=== PATIENT | female | born 1960 | race African-American/Black ===

== ENCOUNTER 2019-03-02 09:51 | Observation (INO) | payer SELFPAY ==
--- NOTE | 2019-03-02 10:59 | RAD ---
EXAM: Chest one view: HISTORY: Chest pain COMPARISON: None FINDINGS: Heart size: Within normal limits. Lungs: Clear of acute process. No evidence for pneumonia, pleural effusion, acute edema, or pneumothorax, or other significant acute process. IMPRESSION: No significant acute intrathoracic disease. Minimal atherosclerosis of the aorta. Small right C7 cervical rib.
[2019-03-02 11:01] LABS: #Basophils 0.1 thou/uL (0.0-0.2); #Eosinphils 0.1 thou/uL (0.0-0.7); #Lymphocytes 2.6 thou/uL (1.20-3.40); #Monocytes 0.6 thou/uL (0.11-0.59); #Neutrophils 2.8 thou/uL (1.40-6.50); %Eosinophils 1.2 % (0.0-10.0); %Lymphocytes 42.3 % (21.0-51.0); %Monocytes 9.2 % (0.0-10.0); %Neutrophils 46.3 % (42.0-75.0); Hemoglobin 11.5 g/dL (12.0-16.0); Mean Platelet Volume 6.3 fL (7.4-10.4); Platelet Count 329 thou/uL (130-400); RBC Distribution Width 11.7 % (11.5-14.5); Red Blood Cell (RBC) Count 3.59 mill/uL (4.20-5.40); White Blood Cell (WBC) Count 6.1 thou/uL (4.8-10.8)
[2019-03-02 11:26] LABS: ALT (SGPT) 15 U/L (8-55); AST (SGOT) 19 U/L (5-34); Alkaline Phosphatase 84 U/L (40-110); Anion Gap 12 mmol/L (10-20); BUN (Urea Nitrogen) 12 mg/dL (9.8-20.1); Bilirubin, Total 0.3 mg/dL (0.2-1.2); Calc. Creatinine Clearance 0 mL/min (70-130); Calcium 9.2 mg/dL (7.8-10.44); Carbon Dioxide 23 mmol/L (22-29); Chloride 106 mmol/L (98-107); Estimated GFR-MDRD 61; Globulin 2.8 g/dL (2.4-3.5); Glucose 102 mg/dL (70-105); Lipase 21 U/L (8-78); Protein, Total 6.8 g/dL (6.0-8.3); Sodium 137 mmol/L (136-145)
[2019-03-02] MEDS ORDERED: Ondansetron ODT 4 MG TAB PO PRN (14:11)
[2019-03-02] MEDS ORDERED: Ondansetron PF 4 MG/2 ML Vial IVP PRN (14:11)
--- NOTE | 2019-03-02 14:33 | PDOC.HHP ---
Hospitalist HPI - History of Present Illness Chest pain on exertion History of Present Illness: Ms. Fink is a pleasant 58 yo woman presenting with exertional chest pain which has been intermittent for the last 5-7 days. States it doesnt happen every single time but it has been gradually worsening. She had another episode of pain this morning at approximately 8:30am and states it was in the center of her chest, non-radiating and at a level of 8/10 in severity lasting a few minutes. She has noted the pain radiates to her left shoulder at times, but this did not happen today. Reports being on nitroglycerin previously but never had to use it. Also reports having a history of hypertension in the past when her son and never did continue with medications or follow-up. ED Course: Patient reports taking aspirin before attending ED. Has had an EKG in the ER showing NSR, HR [address] changes. Nonspecific T wave abnormality noted. CXR showed minimal atherosclerosis of the aorta, otherwise unremarkable. Initial troponin normal. Hospitalist ROS - Review of Systems Constitutional: denies: fever, chills, sweats, weakness, malaise, other Eyes: denies: pain, vision change, conjunctivae inflammation, eyelid inflammation, redness, other ENT: denies: ear pain, ear discharge, nose pain, nose discharge, nose congestion , mouth pain, mouth swelling, throat pain, throat swelling, other Respiratory: denies: cough, dry, shortness of breath, hemoptysis, SOB with excertion, pleuritic pain, sputum, wheezing, other Cardiovascular: reports: chest pain. denies: palpitations, orthopnea, paroxysmal noc. dyspnea, edema, light headedness, other Gastrointestinal: reports: constipation (chronic). denies: nausea, vomiting, abdominal pain, diarrhea, melena, hematochezia, other Genitourinary: denies: dysuria, frequency, incontinence, hematuria, retention, other Musculoskeletal: reports: shoulder pain (radiating from chest pain on occasion) . 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 Gastrointestinal: reports: no pertinent history Heme/Onc: reports: no pertinent history Hepatobiliary: reports: no pertinent history Psych: reports: Anxiety, Depression Musculoskeletal: reports: no pertinent history Rheumatologic: reports: no pertinent history Infectious Disease: reports: no pertinent history ENT: reports: no pertinent history Renal/: reports: no pertinent history Endocrine: reports: no pertinent history Dermatology: reports: no pertinent history - Past Surgical History Past Surgical History: reports: - Family History Family History: reports: no pertinent history - Social History Smoking Status: Former smoker Alcohol: reports: None Drugs: reports: none Living Situation: Other (Lives at [facility]) Activity level: independent ambulation - Exam General Appearance: NAD, awake alert Eye: PERRL, anicteric sclera ENT: normocephalic atraumatic, no oropharyngeal lesions, moist mucosa Neck: supple, no lymphadenopathy Heart: RRR, no murmur, no gallops, normal peripheral pulses Respiratory: CTAB, no wheezes, no rales, no ronchi, normal chest expansion, no tachypnea Gastrointestinal: soft, non-tender, non-distended, normal bowel sounds, no palpable masses, no hepatomegaly, no splenomegaly Extremities: no edema Skin: normal turgor, no lesions, no rashes Neurological: cranial nerve grossly intact, normal sensation to touch, no weakness, no focal deficits Musculoskeletal: normal tone, normal strength, no muscle wasting Psychiatric: normal affect, normal behavior, A&O x 3 Hospitalist Results - Labs Result Diagrams: 03/02/19 10:46 03/02/19 10:46 Lab results: WBC 6.1 thou/uL (4.8-10.8) 03/02/19 10:46 Hgb 11.5 g/dL (12.0-16.0) L 03/02/19 10:46 Hct 33.8 % (36.0-47.0) L 03/02/19 10:46 MCV 94.0 fL (78.0-98.0) 03/02/19 10:46 Plt Count 329 thou/uL (130-400) 03/02/19 10:46 Neutrophils % 46.3 % (42.0-75.0) 03/02/19 10:46 Sodium 137 mmol/L (136-145) 03/02/19 10:46 Potassium 4.0 mmol/L (3.5-5.1) 03/02/19 10:46 Chloride 106 mmol/L (98-107) 03/02/19 10:46 Carbon Dioxide 23 mmol/L (22-29) 03/02/19 10:46 BUN 12 mg/dL (9.8-20.1) 03/02/19 10:46 Creatinine 0.93 mg/dL (0.6-1.1) 03/02/19 10:46 Glucose 102 mg/dL (70-105) 03/02/19 10:46 Calcium 9.2 mg/dL (7.8-10.44) 03/02/19 10:46 Total Bilirubin 0.3 mg/dL (0.2-1.2) 03/02/19 10:46 AST 19 U/L (5-34) 03/02/19 10:46 ALT 15 U/L (8-55) 03/02/19 10:46 Alkaline Phosphatase 84 U/L (40-110) 03/02/19 10:46 Troponin I Less than 0.010 ng/mL (< 0.028) 03/02/19 10:46 Serum Total Protein 6.8 g/dL (6.0-8.3) 03/02/19 10:46 Albumin 4.0 g/dL (3.5-5.0) 03/02/19 10:46 Lipase 21 U/L (8-78) 03/02/19 10:46 - Radiology Interpretation Chest x-ray Status: report reviewed by al Hospitalist H&P A/P - Problem (1) Chest pain on exertion Code(s): R07.9 - CHEST PAIN, UNSPECIFIED Status: Acute (2) History of hypertension Code(s): Z86.79 - PERSONAL HISTORY OF OTHER DISEASES OF THE CIRCULATORY SYSTEM Status: Chronic (3) Anxiety with depression Code(s): F41.8 - OTHER SPECIFIED ANXIETY DISORDERS Status: Chronic - Plan Plan: Continue to trend troponins and continous cardiac monitoring. Will add d-dimer as well as Mg+. UA/UDS. Monitor BP. Lipid panel with morning labs and TSH. Stress test requested, will need to be NPO at midnight. Resume home medications for depression/anxiety once verified. CODE STATUS: FULL Surrogate decision maker is her daughter Juli Sheridan. Case reviewed by Dr. Caldwell.
[2019-03-02 14:54] LABS: Troponin I Less than 0.010 ng/mL (< 0.028)
[2019-03-02 16:23] LABS: Troponin I Less than 0.010 ng/mL (< 0.028)
[2019-03-02] MEDS: Sodium Chloride 0.9% 1,000 ML IV SCH ×2 (16:26→16:54)
[2019-03-02 16:38] VITALS: BMI 34.5
[2019-03-02] MEDS: Famotidine 20 MG TAB PO SCH (20:41)
[2019-03-03 05:43] LABS: #Basophils 0.1 thou/uL (0.0-0.2); #Eosinphils 0.1 thou/uL (0.0-0.7); #Lymphocytes 2.4 thou/uL (1.20-3.40); #Monocytes 0.4 thou/uL (0.11-0.59); %Basophils 1.1 % (0.0-1.0); %Eosinophils 1.7 % (0.0-10.0); %Lymphocytes 48.4 % (21.0-51.0); %Monocytes 8.9 % (0.0-10.0); Mean Corpuscular HGB CONC 35.3 g/dL (32.0-36.0); Mean Corpuscular Hemoglobin 32.7 pg (27.0-31.0); Mean Corpuscular Volume 92.7 fL (78.0-98.0); Mean Platelet Volume 5.8 fL (7.4-10.4); Platelet Count 295 thou/uL (130-400); RBC Distribution Width 11.7 % (11.5-14.5); Red Blood Cell (RBC) Count 3.35 mill/uL (4.20-5.40)
[2019-03-03 06:08] LABS: Anion Gap 10 mmol/L (10-20); BUN (Urea Nitrogen) 14 mg/dL (9.8-20.1); Calc. Creatinine Clearance 95 mL/min (70-130); Calcium 8.8 mg/dL (7.8-10.44); Carbon Dioxide 23 mmol/L (22-29); Cardiac Risk 3.1 (Less than 4.5); Chloride 107 mmol/L (98-107); Cholesterol 183 mg/dl (< 200 Desired); Estimated GFR-MDRD 79; Glucose 97 mg/dL (70-105); HDL Cholesterol 59 mg/dL (>60 Neg Risk); LDL Cholesterol, Calculated 102 mg/dL; Sodium 136 mmol/L (136-145); Triglycerides 112 mg/dL (Less than 150)
[2019-03-03] MEDS: Sodium Chloride 0.9% 1,000 ML IV SCH (06:09)
[2019-03-03] MEDS: Famotidine 20 MG TAB PO SCH (08:30)
[2019-03-03] MEDS ORDERED: Citalopram 20 MG TAB PO SCH (09:00)
--- NOTE | 2019-03-03 13:57 | NM ---
MYOCARDIAL PERFUSION SCAN WITH SPECT IMAGING: HISTORY: Chest pain. TECHNIQUE: Examination is performed as a two day study using 31.9 millicuries of 99m technetium sestamibi on the stress and 29.3 millicuries on the resting images. FINDINGS: This shows a fairly normal distribution of radiopharmaceutical without signs for ischemia or scar. Wall motion: There is symmetric contractility of the ventricle. Left ventricular ejection fraction: The calculated left ventricular ejection fraction is 52%. IMPRESSION: 1. No evidence of ischemic change. 2. Left ventricular ejection fraction is calculated at 52%. Correlate with echocardiogram. POS: [facility]
[2019-03-03] MEDS ORDERED: ADENOSINE 60 MG/20 ML VIAL ONE (14:15)
[2019-03-03] MEDS ORDERED: metroNIDAZOLE 500 MG TAB PO SCH (14:30)
[2019-03-03 16:17] VITALS: BP 145/70; TEMP 98.5
--- NOTE | 2019-03-04 13:47 | DIS ---
DATE OF ADMISSION: 03/02/2019 DATE OF DISCHARGE: 03/03/2019 DISCHARGE DIAGNOSES: 1. Chest pain. 2. Hypertension. 3. Anxiety with depression. HISTORY OF PRESENT ILLNESS: This patient is a 58-year-old female, who presented with a 5 to 7 day history of exertional chest pain. She had a negative evaluation in the emergency department. She was placed in observation status on telemetry. Vital signs remained stable. Her labs were notable for troponins that were less than 0.01, negative. She had a normal TSH, cholesterol panel with LDL of 102, HDL 59, and triglycerides 112. The patient subsequently underwent a stress test. Stress test was unremarkable for ischemia. EF was documented at 52% and correlation with echo was recommended. Echocardiogram was performed and EF was estimated at 55% to 60% with otherwise structurally normal and functionally normal. With that the patient was felt to be stable for discharge to home. PHYSICAL EXAMINATION: VITAL SIGNS: On the day of discharge, temperature 98.5, pulse 77, respirations 16, O2 saturation 98% on room air, BP is 145/70. GENERAL: She is awake, alert, oriented. HEART: Regular rate and rhythm without murmurs, gallops, or rubs. LUNGS: Clear to auscultation bilaterally. Good chest wall expansion and air exchange. ABDOMEN: Soft, nontender, and nondistended. EXTREMITIES: No cyanosis, clubbing, or edema. DISPOSITION: The patient is discharged to home in stable condition. DISCHARGE MEDICATIONS: Include omeprazole 20 mg daily. She will continue with; 1. Citalopram. 2. Quetiapine. 3. Hydroxyzine. FOLLOWUP: She is encouraged to establish with a primary care provider and follow up within 7 days. The patient can return to hospital anytime she feels is needed. Job ID: [id number]
== END 2019-03-03 18:15 | disposition home or self-care (01) ==
LOC: ERS 09:51 → 2SW 16:20
PROVIDERS: ADMIT Internal Medicine; ATTEND Internal Medicine
DX: R07.9 Chest pain, unspecified (principal); I10 Essential (primary) hypertension; F41.8 Other specified anxiety disorders; Z87.891 Personal history of nicotine dependence; Z79.899 Other long term (current) drug therapy
CPT/HCPCS: 36415; 71045; 78452; 80048; 80053; 80061; 83690; 83735; 83880; 84443; 84484; 85025; 85379; 93005; 93017; 93306; A9500; G0378; J0153